=== PATIENT | male | born 1955 | race Caucasian/White ===

== ENCOUNTER 2016-06-05 19:19 | Emergency (ER) | payer MEDICAID ==
[2016-06-05] MEDS ORDERED: Aspirin Low Dose CHEW TAB* 81 MG PO ONE (19:57)
[2016-06-05] MEDS ORDERED: Morphine INJ* 4 MG/ML 1 ML SYRINGE IV ONE (19:57)
--- NOTE | 2016-06-05 20:22 | RAD ---
INDICATION: Chest pain. COMPARISON: There are no prior studies available for comparison. TECHNIQUE: Dual-energy PA and lateral views of the chest were obtained. FINDINGS: The heart is within normal limits in size. Mediastinal and hilar contours appear within normal limits. The lungs are hyperinflated with flattening of the diaphragms. The lungs are clear. No pleural effusion is seen. There is mild compression deformity of mid dorsal vertebral bodies likely old. IMPRESSION: 1. FINDINGS SUGGESTIVE OF COPD, NO EVIDENCE FOR ACUTE FINDING. 2. MILD COMPRESSION FRACTURES OF MID DORSAL VERTEBRAL BODIES LIKELY OLD.
[2016-06-05 20:28] LABS: Hematocrit 42 % (42-52); Hemoglobin 13.7 g/dl (14.0-18.0); Mean Corpuscular HGB Conc 33 g/dl (31-36); Mean Corpuscular Hemoglobin 27 pg (27-31); Mean Corpuscular Volume 83 fL (80-94); Mean Platelet Volume 8 um3 (7.4-10.4); Red Blood Count 5.09 10^6/ul (4.0-5.4); Red Cell Distribution Width 15 % (10.5-15); White Blood Count 8.2 10^3/ul (3.5-10.8)
[2016-06-05 20:44] LABS: Albumin 3.9 g/dL (3.2-5.2); BUN/Creatinine Ratio 11.5 (8-20); Calcium 8.5 mg/dL (8.6-10.3); EGFR African American 62.6 (>60); EGFR Non-African American 48.6 (>60); Globulin 3.1 g/dL (2-4); Magnesium 1.9 mg/dL (1.9-2.7); Potassium 3.8 mmol/L (3.5-5.0); Total Bilirubin 0.5 mg/dL (0.2-1.0)
[2016-06-05 20:46] LABS: Troponin I 0.01 ng/mL (<0.04)
--- NOTE | 2016-06-05 21:08 | ED ---
Jonas Jacobsen Matthew, scribed for Sabino Main MD on 06/05/16 at 2006 . Back Pain - HPI Summary HPI Summary: A 60 y/o male presents to the ED with constant, lower back pain since 19:34. The pain is rated 9/10 in severity and described as taring. The patient states that the pain began as he was driving. He then went to unload his truck, when he experienced SOB and chest pain. Hx of COPD, sarcoidosis . The patient was hospitalized in [place] for a PE and is currently taking xarelto. - History of Current Complaint Chief Complaint: EDChestPainROMI Stated Complaint: CHEST PAIN Time Seen by Provider: 06/05/16 19:47 Hx Obtained From: Patient Onset/Duration: Lasting Hours, Still Present Onset/Duration: Started Hours Ago, Atraumatic, Still Present Back Pain Location: Is Discrete @ - Lower back Severity Initially: Moderate Severity Currently: Moderate Pain Intensity: 9 Pain Scale Used: 0-10 Numeric Associated Signs And Symptoms: Positive: Other - Chest pain, SOB - Allergies/Home Medications Allergies/Adverse Reactions: Allergies Allergy/AdvReac Type Severity Reaction Status Date / Time Mushroom Extract Complex Allergy Unknown Verified 06/05/16 20:24 Reaction Details hogweed Allergy Unknown Uncoded 06/05/16 20:24 Reaction Details PMH/Surg Hx/FS Hx/Imm Hx Respiratory History: Reports: Hx Chronic Obstructive Pulmonary Disease (COPD), Hx Pulmonary Embolism, Other Respiratory Problems/Disorders - sarcoidosis Infectious Disease History: No Infectious Disease History: Denies: Traveled Outside the [place] in Last 30 Days - Family History Known Family History: Positive: Cardiac Disease, Diabetes - Social History Alcohol Use: None Substance Use Type: Reports: None Smoking Status (MU): Former Smoker Review of Systems Constitutional: Negative Eyes: Negative ENT: Negative Positive: Chest Pain Positive: Shortness Of Breath Gastrointestinal: Negative Genitourinary: Negative Positive: Myalgia - lower back pain Skin: Negative Neurological: Negative Psychological: Normal All Other Systems Reviewed And Are Negative: Yes Physical Exam Triage Information Reviewed: Yes Vital Signs On Initial Exam: Initial Vitals Temp Pulse Resp BP Pulse Ox 98.6 F 81 20 132/86 95 06/05/16 19:47 06/05/16 19:47 06/05/16 19:47 06/05/16 19:47 06/05/16 19:47 Vital Signs Reviewed: Yes Appearance: Positive: Well-Appearing, Pain Distress - mild discomfort Skin: Positive: Warm Head/Face: Positive: Normal Head/Face Inspection Eyes: Positive: DICK ENT: Positive: Hearing grossly normal Neck: Positive: Supple Respiratory/Lung Sounds: Positive: Breath Sounds Present Cardiovascular: Positive: RRR Abdomen Description: Positive: Nontender, Soft Bowel Sounds: Positive: Present Musculoskeletal: Positive: Strength/ROM Intact Neurological: Positive: Sensory/Motor Intact, Alert, Oriented to Person Place, Time, Normal Gait Psychiatric: Positive: Affect/Mood Appropriate - Chaya Coma Scale Coma Scale Total: 15 Diagnostics - Vital Signs Vital Signs Temp Pulse Resp BP Pulse Ox 06/05/16 19:59 80 18 95 06/05/16 19:53 136/89 06/05/16 19:50 82 19 133/82 97 06/05/16 19:47 98.6 F 81 20 132/86 95 06/05/16 19:46 133/82 - Laboratory Lab Results: Lab Results 06/05/16 06/05/16 06/05/16 Range/Units 20:17 20:17 20:17 WBC 8.2 (3.5-10.8) 10^3/ul RBC 5.09 (4.0-5.4) 10^6/ul Hgb 13.7 L (14.0-18.0) g/dl Hct 42 (42-52) % MCV 83 (80-94) fL MCH 27 (27-31) pg MCHC 33 (31-36) g/dl RDW 15 (10.5-15) % Plt Count 237 (150-450) 10^3/ul MPV 8 (7.4-10.4) um3 Neut % (Auto) 76.1 (38-83) % Lymph % (Auto) 10.8 L (25-47) % Bullock % (Auto) 10.1 H (1-9) % Eos % (Auto) 1.0 (0-6) % Baso % (Auto) 2.0 (0-2) % Absolute Neuts (auto) 6.2 (1.5-7.7) 10^3/ul Absolute Lymphs (auto) 0.9 L (1.0-4.8) 10^3/ul Absolute Monos (auto) 0.8 (0-0.8) 10^3/ul Absolute Eos (auto) 0.1 (0-0.6) 10^3/ul Absolute Basos (auto) 0.2 (0-0.2) 10^3/ul Absolute Nucleated RBC 0 10^3/ul Nucleated RBC % 0 Sodium 134 (133-145) mmol/L Potassium 3.8 (3.5-5.0) mmol/L Chloride 105 (101-111) mmol/L Carbon Dioxide 21 L (22-32) mmol/L Anion Gap 8 (2-11) mmol/L BUN 17 (6-24) mg/dL Creatinine 1.48 H (0.67-1.17) mg/dL Est GFR ( Amer) 62.6 (>60) Est GFR (Non-Af Amer) 48.6 (>60) BUN/Creatinine Ratio 11.5 (8-20) Glucose 100 (70-100) mg/dL Lactic Acid 1.4 (0.5-2.0) mmol/L Calcium 8.5 L (8.6-10.3) mg/dL Magnesium 1.9 (1.9-2.7) mg/dL Total Bilirubin 0.50 (0.2-1.0) mg/dL AST 28 (13-39) U/L ALT 26 (7-52) U/L Alkaline Phosphatase 62 (34-104) U/L Troponin I 0.01 (<0.04) ng/mL Total Protein 7.0 (6.4-8.9) g/dL Albumin 3.9 (3.2-5.2) g/dL Globulin 3.1 (2-4) g/dL Albumin/Globulin Ratio 1.3 (1-3) Result Diagrams: 06/05/16 20:17 06/05/16 20:17 Lab Statement: Any lab studies that have been ordered have been reviewed, and results considered in the medical decision making process. - Radiology CXR Xray Interpretation: No Acute Changes - IMPRESSION: 1. FINDINGS SUGGESTIVE OF COPD, NO EVIDENCE FOR ACUTE FINDING. 2. MILD COMPRESSION FRACTURES OF MID DORSAL VERTEBRAL BODIES LIKELY OLD. Radiology Interpretation Completed By: Radiologist - EKG 19:39 Cardiac Rate: NL - 79 bpm EKG Rhythm: Sinus Rhythm EKG Interpretation: No STEMI Re-Evaluation - Re-Evaluation First Eval Change: Improved Back Pain Course/Dx - Course Assessment/Plan: A 60 y/o male presents to the ED with constant, lower back pain since 19:34. The pain is rated 9/10 in severity and described as taring. The patient states that the pain began as he was driving. He then went to unload his truck, when he experienced SOB and chest pain. Hx of COPD, sarcoidosis . The patient was hospitalized in [place] for a PE and is currently taking xarelto. Labs were reviewed and troponin 1 was 0.01 and troponin 2 was 0.01. CXR showed 1. findings suggestive of copd, no evidence for acute finding. 2. mild compression fractures of mid dorsal vertebral bodies likely old. EKG shows. In the ED course, the patient was given aspirin and morphine. He did will in the ED and will be discharged home with PCP follow-up. - Diagnoses Provider Diagnoses: Back pain Discharge - Discharge Plan Condition: Stable Disposition: HOME Patient Education Materials: Back Pain (ED) Referrals: [facility] [Outside] Non Staff,Doctor [Primary Care Provider] - Additional Instructions: Please follow-up with your primary care physician in 2 days. The documentation as recorded by the Jonas graves Matthew accurately reflects the service I personally performed and the decisions made by me, Sabino Main MD.
[2016-06-06 01:25] VITALS: BP 134/105
== END 2016-06-06 01:29 | disposition home or self-care (01) ==
LOC: ED 19:19
DX: R07.9 Chest pain, unspecified (principal); R06.02 Shortness of breath; M54.5 Low back pain
CPT/HCPCS: 36415; 71020; 80053; 83605; 83735; 84484; 85025; 93005; 99283; A9270-GY; J2270